=== PATIENT | male | born 1975 | race Caucasian/White ===

== ENCOUNTER 2024-07-10 15:45 | Emergency (ER) | payer OTHER ==
[2024-07-10] MEDS ORDERED: VANCOMYCIN IV PER PHARMACY 1 EACH MISC MISCELLANE PRN (16:06)
--- NOTE | 2024-07-10 16:14 | ED ---
General Adult HPI - General Chief complaint: Extremity Problem,Nontraumatic Stated complaint: L hand swelling Time Seen by Provider: 07/10/24 15:51 Source: patient, RN notes reviewed, old records reviewed Mode of arrival: ambulatory Limitations: no limitations - History of Present Illness Initial comments: 49-year-old male presenting from [facility] for evaluation of left hand and forearm swelling. Patient has significant pain which has developed over the past 24 to 48 hours. 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 Patient denies measured fever. He states he generally does not feel well. He has pain with any movement of the wrist or hand. - Related Data Home Medications Medication Instructions Recorded Confirmed Acetaminophen Tab [Tylenol] 650 mg PO Q4H PRN 07/10/24 07/10/24 Calcium Phos/D3/Magnesium/Zinc 1 tab PO TID PRN 07/10/24 07/10/24 [Lxasqgf-Gyy-Udcf-Vitamin D3] Chlorpheniramine Maleate 4 mg PO Q4H PRN 07/10/24 07/10/24 [Chlor-Trimeton] Folic Acid 1 mg PO DAILY PRN 07/10/24 07/10/24 Hyoscyamine Sulfate [Levsin] 0.125 mg PO QID PRN 07/10/24 07/10/24 Ibuprofen [Motrin Ib] 600 mg PO Q6H PRN 07/10/24 07/10/24 Loperamide HCl [Imodium A-D] 4 mg PO QID PRN MDD 16mg 07/10/24 07/10/24 Methadone HCl [Methadone Intensol] 100 mg PO DAILY 07/10/24 07/10/24 Multivitamins, Thera [Multivitamin 1 tab PO DAILY 07/10/24 07/10/24 (formulary)] Mylanta Regular Strength 30 ml PO Q4H PRN 07/10/24 07/10/24 Thiamine [Vitamin B-1] 100 mg PO DAILY 07/10/24 07/10/24 carBAMazepine 200 mg PO TID 07/10/24 07/10/24 guaiFENesin [guaiFENesin Oral 200 mg PO Q4H PRN 07/10/24 07/10/24 Solution] ondansetron HCL [Zofran] 8 mg PO Q6H PRN 07/10/24 07/10/24 Allergies Allergy/AdvReac Type Severity Reaction Status Date / Time sulfamethoxazole Allergy Swelling Verified 07/10/24 16:40 [From Bactrim] trimethoprim [From Bactrim] Allergy Swelling Verified 07/10/24 16:40 cyclobenzaprine AdvReac Unknown Verified 07/10/24 16:40 [From Flexeril] Review of Systems ROS Statement: Those systems with pertinent positive or pertinent negative responses have been documented in the HPI. ROS Other: All systems not noted in ROS Statement are negative. Past Medical History Past Medical History: No Reported History History of Any Multi-Drug Resistant Organisms: None Reported Past Surgical History: No Surgical Hx Reported Past Psychological History: Anxiety Smoking Status: Current every day smoker Past Alcohol Use History: None Reported Past Drug Use History: Heroin, IV Drug Use General Exam Limitations: no limitations General appearance: alert, in no apparent distress Head exam: Present: atraumatic, normocephalic Eye exam: Present: normal appearance, PERRL ENT exam: Present: normal exam Neck exam: Present: normal inspection. Absent: tenderness, meningismus Respiratory exam: Present: normal lung sounds bilaterally. Absent: respiratory distress, wheezes Cardiovascular Exam: Present: regular rate, normal rhythm GI/Abdominal exam: Present: soft. Absent: distended, tenderness, guarding Extremities exam: Present: other (Warmth and swelling to the left hand and forea rm. The forearm itself is tense. There is severe pain with any range of motion of the digits or wrist.) Neurological exam: Present: alert, oriented X3, CN II-XII intact Psychiatric exam: Present: normal affect, normal mood Skin exam: Present: warm, dry, other (Multiple track peter and injection sites on bilateral forearms.) Course Vital Signs 07/10/24 07/10/24 07/10/24 15:48 17:49 18:00 Temperature 97.9 F Pulse Rate 83 79 80 Respiratory 19 16 16 Rate Blood Pressure 148/90 129/91 127/86 O2 Sat by Pulse 99 99 97 Oximetry Medical Decision Making - Medical Decision Making Was pt. sent in by a medical professional or institution (, PA, CVT TECH, urgent care, hospital, or fpc...) When possible be specific @Sent in by [facility] Did you speak to anyone other than the patient for history (EMS, parent, family, police, friend...)? What history was obtained from this source @ -No Did you review nursing and triage notes (agree or disagree)? Why? @ -I reviewed and agree with nursing and triage notes Were old charts reviewed (outside hosp., previous admission, EMS record, old EKG, old radiological studies, urgent care reports/EKG's, fpc records)? Report findings @ -No old charts were reviewed Differential Musculoskeletal Muscular strain, contusion, ligament sprain, fracture, arthritis, septic arthritis, bursitis, cellulitis, muscle spasm, nerve compression, DVT, arterial occlusion, herpes zoster, electrolyte abnormality, tumor.... This is not meant to be in all inclusive list EKG interpreted by me (3pts min.). @ -As above X-rays interpreted by me (1pt min.). @ -None done CT interpreted by me (1pt min.). @ -None done U/S interpreted by me (1pt. min.). @ -Ultrasound negative for DVT What testing was considered but not performed or refused? (CT, X-rays, U/S, labs)? Why? @ -None What meds were considered but not given or refused? Why? @ -None Did you discuss the management of the patient with other professionals (professionals i.e. , PA, CVT TECH, lab, RT, psych nurse, social media coordinator, materials recycler, teacher, security police officer, rn field case manager)? Give summary @Case discussed with Dr. Gongora, covering for orthopedics, recommends either transfer versus coverage by [facility]. I discussed case with Dr. Dawkins covering for [facility], recommends transfer. Case discussed with the transfer team at [facility], and Dr. Dumont, who will accept transfer. Was smoking cessation discussed for >3mins.? @ -No Was critical care preformed (if so, how long)? @ -No Were there social determinants of health that impacted care today? How? (Homel essness, low income, unemployed, alcoholism, drug addiction, transportation, low edu. Level, literacy, decrease access to med. care, retirement, rehab)? @ -No Was there de-escalation of care discussed even if they declined (Discuss DNR or withdrawal of care, Hospice)? DNR status @ -No What co-morbidities impacted this encounter? (DM, HTN, Smoking, COPD, CAD, Cancer, CVA, ARF, Chemo, Hep., AIDS, mental health diagnosis, sleep apnea, morbid obesity)? @ -IV drug abuse Was patient admitted / discharged? Hospital course, mention meds given and route, prescriptions, significant lab abnormalities, going to OR and other pertinent info. @ -49-year-old male history of IVDA presenting with pain and swelling to the left upper extremity. Patient has moderate to severe pain with any range of motion of the wrist or digits of the left hand. There is diffuse soft tissue swelling and tense compartments in the forearm. The patient has multiple track peter throughout bilateral upper extremities. Patient afebrile with stable vitals. Initial workup is ordered in the emergency department including ultra sound, laboratory testing. Patient has a normal CBC without leukocytosis, normal electrolytes, normal lactic acid. Ultrasound is negative for DVT. There is concern for either deep space infection or compartment syndrome in this extremity requiring evaluation by orthopedic surgery, hand surgery. Case discussed with both orthopedic surgery groups at this institution and both recommending transfer at this time. [facility] accepted the patient Patient given vancomycin and Zosyn in the emergency department. Undiagnosed new problem with uncertain prognosis? @ -No Drug Therapy requiring intensive monitoring for toxicity (Heparin, Nitro, Insulin, Cardizem)? @ -No Were any procedures done? @ -No Diagnosis/symptom? @ -Tenosynovitis, rule out compartment syndrome Acute, or Chronic, or Acute on Chronic? @Acute Uncomplicated (without systemic symptoms) or Complicated (systemic symptoms)? @ -Complicated Side effects of treatment? @ -No Exacerbation, Progression, or Severe Exacerbation? @ -No Poses a threat to life or bodily function? How? (Chest pain, [place], [place], pneumonia, PE, COPD, DKA, ARF, appy, cholecystitis, CVA, Diverticulitis, Homicidal, Suicidal, threat to staff... and all critical care pts) @ -Yes, concern for sepsis, deep space infection, compartment syndrome - Lab Data Result diagrams: 07/10/24 16:49 07/10/24 16:49 Lab Results 07/10/24 07/10/24 07/10/24 Range/Units 16:49 16:49 16:49 WBC 7.32 (4.50-10.00) 10*3/uL RBC 4.01 L (4.40-5.60) 10*6/uL Hgb 12.0 L (13.0-17.0) g/dL Hct 36.0 L (39.6-50.0) % MCV 89.8 (80.0-97.0) fL MCH 29.9 (27.0-32.0) pg MCHC 33.3 (32.0-37.0) g/dL Plt Count 253 (140-440) 10*3/uL MPV 9.6 (9.5-12.2) fL Immature Gran % (Auto) 0.3 % Neutrophils % 61.0 % Lymphocytes % 27.2 % Monocytes % 9.0 % Eosinophils % 2.0 % Basophils % 0.5 % Immature Gran # 0.02 (0.00-0.04) 10*3/uL Neutrophils # 4.46 (1.80-7.70) 10*3/uL Lymphocytes # 1.99 (0.90-5.00) 10*3/uL Monocytes # 0.66 (0.20-1.00) 10*3/uL Eosinophils # 0.15 (0.04-0.35) 10*3/uL Basophils # 0.04 (0.00-0.10) 10*3/uL PT 10.2 (10.0-12.5) sec INR 0.9 (<1.2) APTT 27.2 (22.0-30.0) sec Sodium 138 (137-145) mmol/L Potassium 4.4 (3.5-5.1) mmol/L Chloride 105 (98-107) mmol/L Carbon Dioxide 28 (22-30) mmol/L Anion Gap 5 mmol/L BUN 24 H (9-20) mg/dL Creatinine 1.03 (0.66-1.25) mg/dL Est GFR (CKD-EPI)AfAm >90 (>60 ml/min/1.73 sqM) Est GFR (CKD-EPI)NonAf 87 (>60 ml/min/1.73 sqM) Glucose 86 (74-99) mg/dL Plasma Lactic Acid Thomas (0.7-2.0) mmol/L Calcium 9.3 (8.4-10.2) mg/dL Magnesium 2.1 (1.6-2.3) mg/dL Total Bilirubin 0.3 (0.2-1.3) mg/dL AST 23 (17-59) U/L ALT 22 (4-49) U/L Alkaline Phosphatase 110 (38-126) U/L C-Reactive Protein 2.7 H (<1.0) mg/dL Total Protein 6.4 (6.3-8.2) g/dL Albumin 3.7 (3.5-5.0) g/dL 07/10/24 Range/Units 16:49 WBC (4.50-10.00) 10*3/uL RBC (4.40-5.60) 10*6/uL Hgb (13.0-17.0) g/dL Hct (39.6-50.0) % MCV (80.0-97.0) fL MCH (27.0-32.0) pg MCHC (32.0-37.0) g/dL Plt Count (140-440) 10*3/uL MPV (9.5-12.2) fL Immature Gran % (Auto) % Neutrophils % % Lymphocytes % % Monocytes % % Eosinophils % % Basophils % % Immature Gran # (0.00-0.04) 10*3/uL Neutrophils # (1.80-7.70) 10*3/uL Lymphocytes # (0.90-5.00) 10*3/uL Monocytes # (0.20-1.00) 10*3/uL Eosinophils # (0.04-0.35) 10*3/uL Basophils # (0.00-0.10) 10*3/uL PT (10.0-12.5) sec INR (<1.2) APTT (22.0-30.0) sec Sodium (137-145) mmol/L Potassium (3.5-5.1) mmol/L Chloride (98-107) mmol/L Carbon Dioxide (22-30) mmol/L Anion Gap mmol/L BUN (9-20) mg/dL Creatinine (0.66-1.25) mg/dL Est GFR (CKD-EPI)AfAm (>60 ml/min/1.73 sqM) Est GFR (CKD-EPI)NonAf (>60 ml/min/1.73 sqM) Glucose (74-99) mg/dL Plasma Lactic Acid Thomas 1.0 (0.7-2.0) mmol/L Calcium (8.4-10.2) mg/dL Magnesium (1.6-2.3) mg/dL Total Bilirubin (0.2-1.3) mg/dL AST (17-59) U/L ALT (4-49) U/L Alkaline Phosphatase (38-126) U/L C-Reactive Protein (<1.0) mg/dL Total Protein (6.3-8.2) g/dL Albumin (3.5-5.0) g/dL Disposition Clinical Impression: Tenosynovitis, Soft tissue infection Disposition: OTHER INSTITUTION NOT DEFINED Condition: Stable Is patient prescribed a controlled substance at d/c from ED?: No Referrals: Nonstaff,Physician [Primary Care Provider] - 1-2 days Time of Disposition: 18:36 - Out of Hospital Transfer - Req. Specs Out of Hospital Transfer - Requested Specifics: Other Emergency Center ([facility])
[2024-07-10] MEDS: KETOROLAC 15 MG/ML 1 ML VIAL IVP STA (16:42)
[2024-07-10] MEDS: LACTATED RINGERS 1,000 ML IV SCH (16:43)
[2024-07-10] MEDS: PIPERACILLIN-TAZOBACTAM 3.375 GM in SODIUM CHLORIDE 0.9% 100 ML IVPB SCH (16:43)
[2024-07-10 16:56] LABS: Basophils # (A) 0.04 10*3/uL (0.00-0.10); Basophils % (A) 0.5 %; Eosinophils # (A) 0.15 10*3/uL (0.04-0.35); Lymphocytes # (A) 1.99 10*3/uL (0.90-5.00); Lymphocytes % (A) 27.2 %; MCH 29.9 pg (27.0-32.0); MCHC 33.3 g/dL (32.0-37.0); MCV 89.8 fL (80.0-97.0); Mean Platelet Volume 9.6 fL (9.5-12.2); Monocytes # (A) 0.66 10*3/uL (0.20-1.00); Neutrophils # (A) 4.46 10*3/uL (1.80-7.70); Platelet Count 253 10*3/uL (140-440); RBC 4.01 10*6/uL (4.40-5.60); RDW 12.9 % (11.5-14.5); WBC 7.32 10*3/uL (4.50-10.00)
[2024-07-10 17:07] LABS: INR 0.9 (<1.2); Partial Thromboplastin Time 27.2 sec (22.0-30.0); Prothrombin Time 10.2 sec (10.0-12.5)
[2024-07-10 17:11] LABS: ALT 22 U/L (4-49); AST 23 U/L (17-59); African American GFR (CKD) >90 (>60 ml/min/1.73 sqM); Albumin 3.7 g/dL (3.5-5.0); Alkaline Phosphatase 110 U/L (38-126); Anion Gap 5 mmol/L; Blood Urea Nitrogen 24 mg/dL (9-20); C Reactive Protein 2.7 mg/dL (<1.0); Calcium 9.3 mg/dL (8.4-10.2); Carbon Dioxide 28 mmol/L (22-30); Chloride 105 mmol/L (98-107); Glucose 86 mg/dL (74-99); Magnesium 2.1 mg/dL (1.6-2.3); Non-African American GFR(CKD) 87 (>60 ml/min/1.73 sqM); Potassium 4.4 mmol/L (3.5-5.1); Sodium 138 mmol/L (137-145); Total Bilirubin 0.3 mg/dL (0.2-1.3); Total Protein 6.4 g/dL (6.3-8.2)
[2024-07-10] MEDS: VANCOMYCIN 1,750 MG in SODIUM CHLORIDE 0.9% 500 ML 500 ML IVPB ONE (17:49)
--- NOTE | 2024-07-10 17:58 | US ---
EXAMINATION TYPE: US venous doppler duplex UE LT DATE OF EXAM: 07/10/2024 COMPARISON: NONE CLINICAL INDICATION: Male, 49 years old with history of pain/swelling; patient states left hand/ wris t swelling for 10 hours. patient drug use in left arm, last used yesterday. No hx dvt. not on thinner s TECHNIQUE: Grayscale, color Doppler and spectral Doppler imaging of the upper extremity. SIDE PERFORMED: left VESSELS IMAGED: IJV Subclavian Vein Axilla Vein Brachial Vein(s) Radial Paired Veins Ulnar Paired Veins Cephalic Vein* Basilic Vein* (*superficial vessels) FINDINGS: Left Arm: Negative for DVT Grayscale, color doppler, spectral doppler imaging performed of the deep veins of the upper extremiti es. IMPRESSION: No evidence for DVT. [facility], , 07/10/2024 5:56 PM
[2024-07-10 19:14] VITALS: BP 122/82; PULSE 74; RESP 18; TEMP 98.2
--- NOTE | 2024-07-10 21:04 | P.EN ---
I had no direct involvement in the care of this patient, as this patient is not an established patient with [facility] final decision making regarding management and transfers was determined by the primary orthopedic coverage team, [facility] and Dr. Clint Gongora.
[2024-07-11] MEDS ORDERED: VANCOMYCIN 1,750 MG in SODIUM CHLORIDE 0.9% 500 ML 500 ML IVPB SCH (06:00)
== END 2024-07-10 19:31 | disposition other institution (70) ==
LOC: EC 15:45
DX: M65.942 Unspecified synovitis and tenosynovitis, left hand (principal); L08.9 Local infection of the skin and subcutaneous tissue, unspecified; F17.200 Nicotine dependence, unspecified, uncomplicated; Z88.1 Allergy status to other antibiotic agents; Z88.2 Allergy status to sulfonamides
CPT/HCPCS: 36415; 80053; 83605; 83735; 85025; 85610; 85730; 86140; 87040; 93971; 99285; 96365; 96366; 96368; 96375; J2543; J3370; J1885